=== PATIENT | female | born 1975 | race American Indian/Alaskan Native ===

== ENCOUNTER 2019-07-12 17:28 | Emergency (ER) | payer MEDICAID ==
[2019-07-12] MEDS ORDERED: ASPIRIN 325 MG TAB PO ONE (17:45)
--- NOTE | 2019-07-12 17:54 | Event Note ---
ED Screening Note Date of service: 07/12/19 Time: 17:52 ED Screening Note: 44 y o f presents with sudden onset of pressure like pain top chest while driving driving x 2hours This initial assessment/diagnostic orders/clinical plan/treatment(s) is/are subject to change based on patients health status, clinical progression and re- assessment by fellow clinical providers in the ED. Further treatment and workup at subsequent clinical providers discretion. Patient/guardian urged not to elope from the ED as their condition may be serious if not clinically assessed and managed. Initial orders include: cp protocol ekg- normal
[2019-07-12 18:36] LABS: Basophils % (Auto) 0.4 % (0.0-1.8); Eosinophils # (Auto) 0.1 K/mm3 (0.0-0.4); Eosinophils % (Auto) 0.9 % (0.0-4.3); Hematocrit 34.5 % (30.3-42.9); Hemoglobin 10.6 gm/dl (10.1-14.3); Lymphocytes # (Auto) 3.8 K/mm3 (1.2-5.4); Lymphocytes % (Auto) 36.3 % (13.4-35.0); Mean Corpuscular HGB Conc 31 % (30-34); Mean Corpuscular Volume 81 fl (79-97); Monocytes # (Auto) 0.3 K/mm3 (0.0-0.8); Platelet Count 194 K/mm3 (140-440); Red Blood Count 4.25 M/mm3 (3.65-5.03); Red Cell Distribution Width 18.1 % (13.2-15.2)
--- NOTE | 2019-07-12 18:40 | XRay Report ---
CHEST 2 VIEWS INDICATION: Chest Pain. COMPARISON: None. FINDINGS: Support devices: None. Heart: Within normal limits. Lungs/Pleura: No acute air space or interstitial disease. No significant pleural effusion. IMPRESSION: No acute findings. Signer Name: Hua Sunshine MD Signed: 07/12/2019 6:35 PM Workstation Name: [id number]
[2019-07-12 18:55] LABS: BUN/Creatinine Ratio 17; Blood Urea Nitrogen 12 mg/dL (7-17); Calcium 9.3 mg/dL (8.4-10.2); Hemolysis Index 5
[2019-07-12 23:51] VITALS: BP 144/83
--- NOTE | 2019-07-13 01:08 | Emergency Department Report ---
ED Chest Pain HPI - General Chief Complaint: Chest Pain Stated Complaint: CHEST PAIN/HANDS SHAKY Time Seen by Provider: 07/13/19 00:58 Source: patient Mode of arrival: Wheelchair Limitations: No Limitations - History of Present Illness Initial Comments: Chief complaint: Chest pain HPI: This is a 44-year-old female with history of obesity who presents with heavy chest pain constant for the past 10 hours. She had tingling throughout her body in all 4 extremities. She had mild shortness of breath. Pain improved after burping. The chest discomfort feels as if her breasts were heavy as if removing her bra. No use of oral contraceptives. No leg pain. She denies fever OR cough. MD Complaint: chest pain -: Gradual, hour(s) (10) Onset: during rest Severity scale (0 -10): 0 Quality: heaviness Consistency: now resolved Improves With: other ("Burping") Worsens With: nothing - Related Data Allergies Allergy/AdvReac Type Severity Reaction Status Date / Time No Known Allergies Allergy Unverified 07/12/19 17:45 Heart Score - HEART Score History: Slightly suspicious EKG: Normal Age: < 45 Risk factors: No known risk factors Troponin: < normal limit HEART Score: 0 ED Review of Systems ROS: Stated complaint: CHEST PAIN/HANDS SHAKY Other details as noted in HPI Comment: All other systems reviewed and negative Constitutional: denies: fever, malaise Respiratory: shortness of breath Cardiovascular: chest pain Gastrointestinal: denies: abdominal pain, nausea, vomiting ED Past Medical Hx - Past Medical History Previous Medical History?: No - Surgical History Past Surgical History?: Yes Hx Cholecystectomy: Yes Additional Surgical History: breast reduction,ectopic preg, right rotary c uff,bunion surg,tubiligation - Social History Smoking Status: Never Smoker Substance Use Type: Alcohol ED Physical Exam - General Limitations: No Limitations General appearance: alert, in no apparent distress - Head Head exam: Present: atraumatic, normocephalic - Eye Eye exam: Present: normal appearance - ENT ENT exam: Present: mucous membranes moist - Neck Neck exam: Present: normal inspection, full ROM - Respiratory Respiratory exam: Present: normal lung sounds bilaterally. Absent: respiratory distress, wheezes, rales, rhonchi - Cardiovascular Cardiovascular Exam: Present: regular rate, normal rhythm, normal heart sounds. Absent: systolic murmur, diastolic murmur, rubs, gallop - GI/Abdominal GI/Abdominal exam: Present: soft, normal bowel sounds. Absent: distended, tenderness, guarding, rebound - Extremities Exam Extremities exam: Present: normal inspection - Neurological Exam Neurological exam: Present: alert, oriented X3 - Psychiatric Psychiatric exam: Present: normal affect, normal mood - Skin Skin exam: Present: warm, dry, intact, normal color. Absent: rash ED Course Vital Signs 07/12/19 07/12/19 07/12/19 17:40 17:49 23:49 Temperature 97.7 F 98.0 F Pulse Rate 114 H 98 H 74 Respiratory 20 18 Rate Blood Pressure 165/94 144/83 O2 Sat by Pulse 100 100 Oximetry ED Medical Decision Making - Lab Data Result diagrams: 07/12/19 18:01 07/12/19 18:01 Laboratory Results - last 24 hr 07/12/19 07/12/19 07/12/19 18:01 18:01 23:06 WBC 10.6 RBC 4.25 Hgb 10.6 Hct 34.5 MCV 81 MCH 25 L MCHC 31 RDW 18.1 H Plt Count 194 Lymph % (Auto) 36.3 H Boyle % (Auto) 3.0 Eos % (Auto) 0.9 Baso % (Auto) 0.4 Lymph # 3.8 Boyle # 0.3 Eos # 0.1 Baso # 0.0 Seg Neutrophils % 59.4 Seg Neutrophils # 6.3 Sodium 139 Potassium 4.0 Chloride 99.8 Carbon Dioxide 20 L Anion Gap 23 BUN 12 Creatinine 0.7 Estimated GFR > 60 BUN/Creatinine Ratio 17 Glucose 95 Calcium 9.3 Troponin T < 0.010 < 0.010 - EKG Data EKG shows normal: sinus rhythm, axis, intervals, QRS complexes, ST-T waves Rate: normal - EKG Data Interpretation: normal EKG - Radiology Data Radiology results: report reviewed Chest radiograph: No acute findings according radiology report - Medical Decision Making This is a 44-year-old female who presents with chest pain atypical for acute coronary syndrome. I do not suspect emergent causes such as pulmonary embolism or aortic dissection. I suspect GI etiology such as GERD heartburn. She is referred to dining chair seat cushion trimmer for outpatient evaluation. Also refer to outpatient medicine physician.. CBC chemistry within normal limits. Troponin x2 are negative. Repeat heart rate 74 bpm. PERC negative for PE Critical care attestation.: If time is entered above; I have spent that time in minutes in the direct care of this critically ill patient, excluding procedure time. ED Disposition Clinical Impression: Chest pain Disposition: TO HOME OR SELFCARE Is pt being admited?: No Does the pt Need Aspirin: No Condition: Stable Instructions: Chest Pain (ED) Referrals: YING MCCLELLAN MD [Staff Physician] - 3-5 Days LADONNA HOYT MD [Staff Physician] - 3-5 Days
== END 2019-07-13 01:15 | disposition home or self-care (01) ==
LOC: ED 17:28
DX: R07.89 Other chest pain (principal); Z90.49 Acquired absence of other specified parts of digestive tract; Z90.710 Acquired absence of both cervix and uterus; Z98.890 Other specified postprocedural states
CPT/HCPCS: 36415; 71046; 80048; 84484; 85025; 93005